=== PATIENT | male | born 1955 | race Caucasian/White ===

== ENCOUNTER 2017-03-10 11:47 | Emergency (ER) | payer OTHER ==
[~2017-03-10] VITALS: Ht 170.2 cm; Wt 99.7 kg
[2017-03-10 13:48] LABS: HEMATOCRIT 35.9 % (38.0-50.0); MCH 32.9 PG (29.0-34.0); MCHC 34.5 G/DL (30.0-36.0); MCV 95.2 FL (86-99); MEAN PLAT.VOLUME 11.6 uM^3 (9.0-12.4); PLATELET COUNT 184 K/uL (156-360); RBC DIS.WIDTH-CV 13.1 % (11.8-14.6); RBC DIS.WIDTH-SD 44.9 % (39-53); RED BLOOD COUNT 3.77 M/uL (4.00-5.50); WHITE BLOOD COUNT 8.3 K/uL (4.1-10.2)
[2017-03-10 13:55] LABS: CHLORIDE 102 mEq/L (99-109); POTASSIUM 4.8 mEq/L (3.7-5.4); SODIUM 129 mEq/L (136-147)
[2017-03-10 13:57] LABS: GLUCOSE 104 mg/dL (70-99)
[2017-03-10 13:59] LABS: ANION GAP 9 MEQ/L (2-14); TOTAL BILIRUBIN 0.9 mg/dL (0.0-1.0)
[2017-03-10 14:01] LABS: ALKALINE PHOSPHATASE 59 IU/L (3-129); GFR ESTIMATE (CALCULATED) > 59 mL/min/
[2017-03-10 14:02] LABS: UREA NITROGEN (BUN) 23 mg/dL (9-23)
[2017-03-10 14:04] LABS: LIPASE 35 U/L (1.0-51.0)
[2017-03-10] MEDS ORDERED: NORCO 5/3251 TABLET PO (15:39)
[2017-03-10] MEDS ORDERED: NAPROSYN500 MG PO (15:39)
[2017-03-10 16:09] VITALS: BP 158/89
== END 2017-03-10 16:19 | disposition home or self-care (01) ==
LOC: EME 11:47
PROVIDERS: Nurse Practitioner Family
DX: S22.31XA Fracture of one rib, right side, initial encounter for closed fracture (principal); S50.11XA Contusion of right forearm, initial encounter; S80.01XA Contusion of right knee, initial encounter; S80.211A Abrasion, right knee, initial encounter; S51.811A Laceration without foreign body of right forearm, initial encounter; M25.511 Pain in right shoulder; R10.11 Right upper quadrant pain; W06.XXXA Fall from bed, initial encounter; E87.1 Hypo-osmolality and hyponatremia; E86.0 Dehydration; I10 Essential (primary) hypertension; K80.20 Calculus of gallbladder without cholecystitis without obstruction
CPT/HCPCS: 71260; 73030; 73564; 74177; 80053; 83690; 85027; 93005; 99281; 99285; J2270; J7030

== ENCOUNTER 2017-06-07 10:25 | Emergency (ER) | payer OTHER ==
[~2017-06-07] VITALS: Ht 175.3 cm; Wt 97.1 kg
[~2017-06-07 10:25] MED LIST: NAPROSYN500 MG PO; NORCO 5/3251 TABLET PO
[2017-06-07 10:51] LABS: BASOPHIL COUNT 0.1 K/uL (0-0.1); EOSINOPHIL COUNT 0.3 K/uL (0-0.3); HEMATOCRIT 38.4 % (38.0-50.0); HEMOGLOBIN 13.4 G/DL (12.5-16.6); IMMATURE GRANULOCYTE (%) 0.6 % (0.0-0.7); LYMPHOCYTE (%) 22.3 % (15-42); LYMPHOCYTE COUNT 1.4 K/uL (1.0-2.8); MCH 32.7 PG (29.0-34.0); MCHC 34.9 G/DL (30.0-36.0); MCV 93.7 FL (86-99); MONOCYTE (%) 11.9 % (3-12); MONOCYTE COUNT 0.7 K/uL (0-0.8); NEUTROPHIL (%) 59.2 % (45-76); NEUTROPHIL COUNT 3.7 K/uL (1.8-6.4); PLATELET COUNT 182 K/uL (156-360); RBC DIS.WIDTH-CV 11.7 % (11.8-14.6); WHITE BLOOD COUNT 6.2 K/uL (4.1-10.2)
[2017-06-07 11:06] LABS: CHLORIDE 104 mEq/L (99-109); POTASSIUM 4.5 mEq/L (3.7-5.4); SODIUM 135 mEq/L (136-147)
[2017-06-07 11:08] LABS: GLUCOSE 104 mg/dL (70-99)
[2017-06-07 11:11] LABS: CREATININE 1.3 mg/dL (0.6-1.3); GFR ESTIMATE (CALCULATED) > 59 mL/min/ (58.99-99999)
[2017-06-07 11:12] LABS: UREA NITROGEN (BUN) 13 mg/dL (9-23)
[2017-06-07 11:14] LABS: TROP-I INTERPRETATION NEGATIVE; TROPONIN-I < 0.01 ng/mL (0.0-0.30)
[2017-06-07 12:40] LABS: APPEARANCE CLEAR ((CLEAR)); BILIRUBIN NEGATIVE; BLOOD NEGATIVE; COLOR STRAW ((YELLOW)); GLUCOSE (STRIP) NEGATIVE; KETONES NEGATIVE; LEUKOCYTES NEGATIVE; NITRITE NEGATIVE; PROTEIN (STRIP) NEGATIVE; SPECIFIC GRAVITY 1.006 (1.000-1.030); UCUL ADDED? NO; UROBILINOGEN 0.2 MG/DL (0.2-1.0)
[2017-06-07 14:40] VITALS: BP 157/94
== END 2017-06-07 11:30 ==
LOC: EME 10:25
PROVIDERS: Emergency Medicine
DX: R55 Syncope and collapse (principal); R60.0 Localized edema; I10 Essential (primary) hypertension; Z86.73 Personal history of transient ischemic attack (TIA), and cerebral infarction without residual deficits
CPT/HCPCS: 70450; 80048; 81003; 84484; 85025; 93005; 99281; 99284; J7030